=== PATIENT | male | born 1970 ===

== ENCOUNTER 2021-02-01 18:00 | Inpatient (IN) | payer BC, SELFPAY ==
[2021-02-01 21:20] VITALS: BMI 30.4
[2021-02-01] MEDS ORDERED: Ondansetron PF 4 MG/2 ML Vial IVP PRN (21:42)
[2021-02-01] MEDS ORDERED: HYDROcodone/Acetaminophen 5/325 mg Tablet PO PRN (21:42)
[2021-02-01] MEDS ORDERED: Bisacodyl 5 MG TAB PO PRN (21:42)
[2021-02-01] MEDS ORDERED: Acetaminophen 325 MG TAB PO PRN (21:42)
[2021-02-01] MEDS ORDERED: hydrALAZINE 20 MG/ML VIAL SLOW IVP PRN (21:44)
[2021-02-01] MEDS ORDERED: GUAIFENESIN SF SOLN 200 MG/10 ML UDCUP PO PRN (21:44)
[2021-02-01] MEDS ORDERED: Potassium Chloride 20 MEQ TAB PO SCH (22:30)
[2021-02-01] MEDS ORDERED: Ivermectin 3 MG TAB PO SCH (22:30)
[2021-02-01] MEDS ORDERED: Dexamethasone 4 MG TAB PO SCH (22:45)
[2021-02-01] MEDS: CEFEPIME HCL IN DEXTROSE 5 % 1 GM in Premix Bag 1 BAG IVPB SCH (22:51)
[2021-02-02 05:25] LABS: Hemoglobin 15.7 g/dL (14.0-18.0); Mean Corpuscular HGB CONC 35.5 g/dL (32.0-36.0); Mean Corpuscular Hemoglobin 32.1 pg (27.0-31.0); Mean Corpuscular Volume 90.4 fL (78.0-98.0); Mean Platelet Volume 7.6 fL (7.4-10.4); Platelet Count 164 thou/uL (130-400); RBC Distribution Width 11.9 % (11.5-14.5); Red Blood Cell (RBC) Count 4.91 mill/uL (4.70-6.10); White Blood Cell (WBC) Count 3.7 thou/uL (4.8-10.8)
[2021-02-02 06:01] LABS: Band 12 % (5-11); Lymphocytes 9 % (21-51); MDiff Complete? YES; Monocytes 5 % (0-10); Neutrophil 74 % (42-75)
[2021-02-02 06:24] LABS: ALT (SGPT) 62 U/L (8-55); AST (SGOT) 42 U/L (5-34); Albumin 3.6 g/dL (3.5-5.0); Alkaline Phosphatase 68 U/L (40-110); Anion Gap 16 mmol/L (10-20); BUN (Urea Nitrogen) 16 mg/dL (8.4-25.7); Bilirubin, Total 0.7 mg/dL (0.2-1.2); Calc. Creatinine Clearance 148 mL/min (70-130); Calcium 8.9 mg/dL (7.8-10.44); Carbon Dioxide 23 mmol/L (22-29); Chloride 103 mmol/L (98-107); Globulin 3.3 g/dL (2.4-3.5); Glucose 146 mg/dL (70-105); Protein, Total 6.9 g/dL (6.0-8.3); Sodium 138 mmol/L (136-145)
[2021-02-02] MEDS: Enoxaparin Sodium 40 MG/0.4 ML SYRINGE SC SCH (07:42)
[2021-02-02] MEDS: Dexamethasone 4 MG TAB PO SCH ×2 (07:42→16:53)
[2021-02-02] MEDS: Famotidine 20 MG TAB PO SCH ×2 (07:43→20:59)
[2021-02-02] MEDS: guaiFENesin ER 600 MG TAB PO SCH ×2 (07:43→20:59)
[2021-02-02] MEDS: Zinc Sulfate 220 MG CAP PO SCH (07:43)
[2021-02-02] MEDS: CEFEPIME HCL IN DEXTROSE 5 % 1 GM in Premix Bag 1 BAG IVPB SCH ×2 (12:00→23:24)
[2021-02-02] MEDS ORDERED: REMDESIVIR 200 MG in Sodium Chloride 0.9% 250 ML 210 ML IV SCH (18:00)
[2021-02-02 18:30] LABS: Legionella Urinary Ag Negative (Negative); Strep pneumo Urine Ag NEGATIVE (NEGATIVE)
[2021-02-03 04:45] LABS: #Basophils 0.1 thou/uL (0.0-0.2); #Lymphocytes 0.8 thou/uL (1.20-3.40); #Monocytes 0.4 thou/uL (0.11-0.59); #Neutrophils 5.5 thou/uL (1.40-6.50); %Basophils 0.8 % (0.0-1.0); %Eosinophils 0.1 % (0.0-10.0); %Lymphocytes 11.3 % (21.0-51.0); %Monocytes 5.6 % (0.0-10.0); %Neutrophils 82.2 % (42.0-75.0); Hemoglobin 15.8 g/dL (14.0-18.0); Mean Corpuscular Volume 91.5 fL (78.0-98.0); Mean Platelet Volume 7.9 fL (7.4-10.4); Platelet Count 197 thou/uL (130-400); Red Blood Cell (RBC) Count 4.95 mill/uL (4.70-6.10); White Blood Cell (WBC) Count 6.7 thou/uL (4.8-10.8)
[2021-02-03 05:07] LABS: Anion Gap 15 mmol/L (10-20); BUN (Urea Nitrogen) 19 mg/dL (8.4-25.7); Calc. Creatinine Clearance 157 mL/min (70-130); Calcium 8.6 mg/dL (7.8-10.44); Carbon Dioxide 24 mmol/L (22-29); Chloride 103 mmol/L (98-107); Glucose 121 mg/dL (70-105); Potassium 3.4 mmol/L (3.5-5.1); Sodium 139 mmol/L (136-145)
[2021-02-03] MEDS: Dexamethasone 4 MG TAB PO SCH ×2 (08:19→17:59)
[2021-02-03] MEDS: Famotidine 20 MG TAB PO SCH ×2 (08:19→19:27)
[2021-02-03] MEDS: guaiFENesin ER 600 MG TAB PO SCH ×2 (08:19→19:27)
[2021-02-03] MEDS: Enoxaparin Sodium 40 MG/0.4 ML SYRINGE SC SCH (08:19)
[2021-02-03] MEDS: Zinc Sulfate 220 MG CAP PO SCH (08:20)
[2021-02-03] MEDS: CEFEPIME HCL IN DEXTROSE 5 % 1 GM in Premix Bag 1 BAG IVPB SCH ×2 (13:05→23:11)
[2021-02-03] MEDS: REMDESIVIR 100 MG in Sodium Chloride 0.9% 250 ML 230 ML IV SCH (17:58)
[2021-02-04] MEDS: Enoxaparin Sodium 40 MG/0.4 ML SYRINGE SC SCH (08:13)
[2021-02-04] MEDS: Dexamethasone 4 MG TAB PO SCH ×2 (08:14→16:02)
[2021-02-04] MEDS: guaiFENesin ER 600 MG TAB PO SCH ×2 (08:14→21:13)
[2021-02-04] MEDS: Zinc Sulfate 220 MG CAP PO SCH (08:14)
[2021-02-04] MEDS: Famotidine 20 MG TAB PO SCH ×2 (08:14→21:13)
[2021-02-04] MEDS: CEFEPIME HCL IN DEXTROSE 5 % 1 GM in Premix Bag 1 BAG IVPB SCH ×2 (10:20→21:12)
[2021-02-04] MEDS: REMDESIVIR 100 MG in Sodium Chloride 0.9% 250 ML 230 ML IV SCH (18:10)
[2021-02-05 04:39] LABS: #Lymphocytes 0.9 thou/uL (1.20-3.40); #Monocytes 0.6 thou/uL (0.11-0.59); #Neutrophils 5.4 thou/uL (1.40-6.50); %Basophils 0.4 % (0.0-1.0); %Eosinophils 0.3 % (0.0-10.0); %Monocytes 8.1 % (0.0-10.0); %Neutrophils 78.2 % (42.0-75.0); Hemoglobin 14.8 g/dL (14.0-18.0); Mean Corpuscular Volume 90.8 fL (78.0-98.0); Mean Platelet Volume 7.8 fL (7.4-10.4); Platelet Count 240 thou/uL (130-400); RBC Distribution Width 11.8 % (11.5-14.5); Red Blood Cell (RBC) Count 4.94 mill/uL (4.70-6.10); White Blood Cell (WBC) Count 6.9 thou/uL (4.8-10.8)
[2021-02-05 05:01] LABS: Anion Gap 13 mmol/L (10-20); BUN (Urea Nitrogen) 19 mg/dL (8.4-25.7); Calc. Creatinine Clearance 157 mL/min (70-130); Calcium 8.1 mg/dL (7.8-10.44); Carbon Dioxide 22 mmol/L (22-29); Chloride 107 mmol/L (98-107); Glucose 128 mg/dL (70-105); Potassium 3.8 mmol/L (3.5-5.1); Sodium 138 mmol/L (136-145)
[2021-02-05] MEDS: Dexamethasone 4 MG TAB PO SCH ×2 (08:15→17:22)
[2021-02-05] MEDS: guaiFENesin ER 600 MG TAB PO SCH ×2 (08:15→21:40)
[2021-02-05] MEDS: Zinc Sulfate 220 MG CAP PO SCH (08:15)
[2021-02-05] MEDS: Famotidine 20 MG TAB PO SCH ×2 (08:15→21:40)
[2021-02-05] MEDS: Enoxaparin Sodium 40 MG/0.4 ML SYRINGE SC SCH (08:15)
[2021-02-05] MEDS: CEFEPIME HCL IN DEXTROSE 5 % 1 GM in Premix Bag 1 BAG IVPB SCH ×2 (10:15→21:40)
[2021-02-05] MEDS: REMDESIVIR 100 MG in Sodium Chloride 0.9% 250 ML 230 ML IV SCH (17:22)
[2021-02-06] MEDS: Zinc Sulfate 220 MG CAP PO SCH (08:41)
[2021-02-06] MEDS: guaiFENesin ER 600 MG TAB PO SCH (08:41)
[2021-02-06] MEDS: Dexamethasone 4 MG TAB PO SCH ×2 (08:42→16:24)
[2021-02-06] MEDS: Famotidine 20 MG TAB PO SCH (08:42)
[2021-02-06] MEDS: Enoxaparin Sodium 40 MG/0.4 ML SYRINGE SC SCH (08:42)
[2021-02-06 09:50] LABS: Troponin I Less than 0.010 ng/mL (< 0.028)
[2021-02-06] MEDS: CEFEPIME HCL IN DEXTROSE 5 % 1 GM in Premix Bag 1 BAG IVPB SCH (10:05)
[2021-02-06 15:56] LABS: Troponin I Less than 0.010 ng/mL (< 0.028)
[2021-02-06] MEDS: REMDESIVIR 100 MG in Sodium Chloride 0.9% 250 ML 230 ML IV SCH (16:25)
[2021-02-06 17:18] VITALS: BP 128/77; TEMP 97.7
== END 2021-02-06 17:45 | disposition home or self-care (01) | DRG 177 ==
LOC: 2SW 18:00 → OBSVTOIN 18:00
PROVIDERS: ADMIT Internal Medicine; ATTEND Internal Medicine
PROC: 8E0ZXY6 Isolation (ICD-10-PCS; principal; 2021-02-01)
PROC: XW033E5 Introduction of Remdesivir Anti-infective into Peripheral Vein, Percutaneous Approach, New Technology Group 5 (ICD-10-PCS; 2021-02-02)
DX: U07.1 COVID-19 (principal); J12.82 Pneumonia due to coronavirus disease 2019; J96.01 Acute respiratory failure with hypoxia; Z88.0 Allergy status to penicillin; Z87.01 Personal history of pneumonia (recurrent); Z82.3 Family history of stroke
CPT/HCPCS: 36415; 80048; 80053; 82728; 84145; 84484; 85007; 85025; 85027; 85379; 86140; 87070; 87205; 87449; 87899; 93005; 93010; J0692; J1650; J7050; J8540